=== PATIENT | female | born 1990 | race American Indian/Alaskan Native ===

== ENCOUNTER 2021-03-08 00:14 | Emergency (ER) | payer SELFPAY ==
[2021-03-08] MEDS ORDERED: MORPHINE 4 MG/1 ML INJ IV ONE (00:33)
[2021-03-08] MEDS ORDERED: ONDANSETRON 4 MG/2 ML INJ IV ONE ×2 (00:33→01:58)
[2021-03-08 00:46] LABS: Basophils # (Auto) 0.1 K/mm3 (0.0-0.1); Basophils % (Auto) 1.5 % (0.0-1.8); Eosinophils % (Auto) 0.2 % (0.0-4.3); Hematocrit 43.1 % (30.3-42.9); Hemoglobin 14.7 gm/dl (10.1-14.3); Lymphocytes # (Auto) 2.1 K/mm3 (1.2-5.4); Lymphocytes % (Auto) 35.5 % (13.4-35.0); Mean Corpuscular HGB Conc 34 % (30-34); Mean Corpuscular Volume 86 fl (79-97); Monocytes # (Auto) 0.5 K/mm3 (0.0-0.8); Monocytes % (Auto) 7.4 % (0.0-7.3); Platelet Count 332 K/mm3 (140-440); Red Blood Count 4.98 M/mm3 (3.65-5.03); Red Cell Distribution Width 12.7 % (13.2-15.2)
[2021-03-08 01:03] LABS: Alanine Aminotransferase 19 units/L (7-56); Albumin 4.8 g/dL (3.9-5); BUN/Creatinine Ratio 13; Blood Urea Nitrogen 10 mg/dL (7-17); Calcium 9.6 mg/dL (8.4-10.2); Hemolysis Index 4
[2021-03-08] MEDS ORDERED: SODIUM CHLORIDE 0.9% 1000 ML 1,000 ML IV ONE (01:58)
[2021-03-08] MEDS ORDERED: HYDROmorphone 2 MG/1 ML INJ IV ONE (01:58)
--- NOTE | 2021-03-08 02:01 | Emergency Department Report ---
ED Abdominal Pain HPI - General Chief Complaint: Abdominal Pain Stated Complaint: SEVERE ABD PAIN Time Seen by Provider: 03/08/21 01:55 Source: EMS Mode of arrival: Stretcher Limitations: Physical Limitation - History of Present Illness Initial Comments: Patient is a 30-year-old female that presents emergency room with complaints of abdominal pain. Patient dates abdominal pain is her bilateral lower quadrants radiating to her bilateral flanks. Patient states the pain started 4 days ago. Patient dates the pain is worsening. Patient dates the pain is a 10 out of 10. Patient denies fever and chills. Patient denies blood in her vomitus. Patient also complains of nausea and vomiting. Patient denies diarrhea. Patient denies recent travel. Patient denies recent international travel. Patient denies exposure to the novel coronavirus. Patient denies sick contacts. Patient denies fever and chills. Patient denies cough. Patient denies diarrhea. Patient denies coming in contact with anybody with symptoms of the novel coronavirus. MD Complaint: abdominal pain, flank pain -: Sudden Location: LLQ, RLQ Radiation: L flank, R flank Migration to: no migration Severity: severe Severity scale (0 -10): 10 Quality: stabbing Consistency: constant Improves With: rest Worsens With: vomiting, movement Associated Symptoms: nausea, vomiting. denies: diarrhea, fever, dysuria, hematemesis, hematochezia, melena, hematuria, syncope - Related Data LMP (females 10-50): last week Previous Rx's Medication Instructions Recorded Last Taken Type HYDROcodone/APAP 5-325 [[place] 1 - 2 each PO Q6HR PRN #14 tablet 06/01/16 Unknown Rx 5/325] Promethazine [Phenergan TAB] 25 mg PO Q6HR PRN #20 tab 06/01/16 Unknown Rx Promethazine [Phenergan] 25 mg HI Q6HR PRN #10 supp.rect 06/01/16 Unknown Rx Acetaminophen/Codeine [Tylenol 1 tab PO Q6H PRN #12 tab 03/08/21 Unknown Rx /Codeine # 3 tab] Ondansetron [Zofran Odt] 4 mg PO Q6HR PRN #15 tab.rapdis 03/08/21 Unknown Rx Pantoprazole [Protonix] 40 mg PO QDAY 20 Days #20 tablet 03/08/21 Unknown Rx Allergies Allergy/AdvReac Type Severity Reaction Status Date / Time Fish Containing Products Allergy Unknown Verified 05/28/16 09:13 ketorolac tromethamine Allergy Hives Verified 05/28/16 09:13 [From Toradol] seafood Allergy Unknown Uncoded 05/28/16 09:12 ED Review of Systems ROS: Stated complaint: SEVERE ABD PAIN Other details as noted in HPI Constitutional: denies: chills, fever Eyes: denies: eye pain, eye discharge, vision change ENT: denies: ear pain, throat pain Respiratory: denies: cough, shortness of breath, wheezing Cardiovascular: denies: chest pain, palpitations Endocrine: no symptoms reported Gastrointestinal: as per HPI, abdominal pain, nausea, vomiting. denies: diarrhea, constipation, hematemesis, melena, hematochezia Genitourinary: denies: urgency, dysuria, discharge Musculoskeletal: denies: back pain, joint swelling, arthralgia Skin: denies: rash, lesions Neurological: denies: headache, weakness, paresthesias Psychiatric: denies: anxiety, depression Hematological/Lymphatic: denies: easy bleeding, easy bruising ED Past Medical Hx - Past Medical History Previous Medical History?: Yes Hx Kidney Stones: Yes Additional medical history: Ovarian cyst, UTI - Surgical History Past Surgical History?: Yes Hx Cholecystectomy: Yes - Family History Family history: no significant - Social History Smoking Status: Never Smoker Substance Use Type: None - Medications Home Medications: Home Medications Medication Instructions Recorded Confirmed Last Taken Type HYDROcodone/APAP 5-325 [[place] 1 - 2 each PO Q6HR PRN #14 tablet 06/01/16 Unknown Rx 5/325] Promethazine [Phenergan TAB] 25 mg PO Q6HR PRN #20 tab 06/01/16 Unknown Rx Promethazine [Phenergan] 25 mg HI Q6HR PRN #10 supp.rect 06/01/16 Unknown Rx Acetaminophen/Codeine [Tylenol 1 tab PO Q6H PRN #12 tab 03/08/21 Unknown Rx /Codeine # 3 tab] Ondansetron [Zofran Odt] 4 mg PO Q6HR PRN #15 tab.rapdis 03/08/21 Unknown Rx Pantoprazole [Protonix] 40 mg PO QDAY 20 Days #20 tablet 03/08/21 Unknown Rx ED Physical Exam - General Limitations: Physical Limitation General appearance: alert, in no apparent distress - Head Head exam: Present: atraumatic, normocephalic - Eye Eye exam: Present: normal appearance - ENT ENT exam: Present: mucous membranes moist - Neck Neck exam: Present: normal inspection - Respiratory Respiratory exam: Present: normal lung sounds bilaterally. Absent: respiratory distress - Cardiovascular Cardiovascular Exam: Present: regular rate, normal rhythm. Absent: systolic murmur, diastolic murmur, rubs, gallop - GI/Abdominal GI/Abdominal exam: Present: soft, tenderness, normal bowel sounds. Absent: distended, guarding - Extremities Exam Extremities exam: Present: normal inspection - Back Exam Back exam: Present: normal inspection - Neurological Exam Neurological exam: Present: alert, oriented X3 - Psychiatric Psychiatric exam: Present: normal affect, normal mood - Skin Skin exam: Present: warm, dry, intact, normal color. Absent: rash ED Course Vital Signs 03/08/21 03/08/21 03/08/21 00:19 00:37 02:11 Temperature 97.8 F Pulse Rate 99 H Respiratory 16 19 20 Rate Blood Pressure 152/94 Blood Pressure [Left] O2 Sat by Pulse 100 Oximetry 03/08/21 06:07 Temperature Pulse Rate 87 Respiratory 18 Rate Blood Pressure Blood Pressure 128/84 [Left] O2 Sat by Pulse 100 Oximetry - Reevaluation(s) Reevaluation #1: Initial evaluation done. Patient already had 4 of morphine and 4 of Zofran and the patient is still vomiting and having severe pain. Patient will be given Dilaudid and Zofran. Patient also have IV fluids started. Patient will have a CAT scan done. Patient agrees with plan of care. 03/08/21 02:02 Reevaluation #2: Patient states her pain is better. Patient states her nausea is resolved. 03/08/21 03:28 Reevaluation #3: Patient states she is feeling much better. Patient states he is ready to go. I discussed all results and clinical findings with patient. I discussed plan of care with patient. Patient agrees with plan of care. Patient is stable for discharge. Patient will be discharged home. Patient given discharge instructions. Patient voiced understanding of discharge instructions. 03/08/21 05:28 ED Medical Decision Making - Lab Data Result diagrams: 03/08/21 00:24 03/08/21 00:24 - Radiology Data Radiology results: report reviewed CT abdomen pelvis w con INDICATION: Bi-Lateral lower abd pain, Bi-Lateral flank pain. COMPARISON: None TECHNIQUE: Abdominal and pelvic CT exam performed. All CT scans at this location are performed using CT dose reduction for ALARA by means of automated exposure control. FINDINGS: CT ABDOMEN and PELVIS: Lung Bases: No significant abnormality. Liver: No significant abnormality. Biliary: Gallbladder is surgically absent. Spleen: No significant abnormality. Pancreas: No significant abnormality. Adrenals: No significant abnormality. Kidneys: Left 4 mm interpolar nonobstructing stone. No right renal stones. No hydronephrosis. No suspicious lesion. No suspicious filling defects in the opacified portions of the collecting system or ureters on delayed imaging. Lymphatics: No lymphadenopathy. Vasculature: No significant abnormality. Bowel: Mild gastric antral submucosal edema as well as mild thickening of the large bowel. Normal appendix. Pelvis: No significant abnormality. Osseous Structures: No aggressive osseous lesion. Additional Findings: None IMPRESSION: 1. Findings suggest gastritis in the gastric antrum as well as colitis. - Medical Decision Making Patient is a 30-year-old female who presents emergency room with complaints of severe abdominal pain. Patient's abdominal pain is generalized and radiating to her flanks. Patient had labs done which were essentially unremarkable. P atient's abdominal pain is severe and was given 4 mg of morphine or Dilaudid patient states abdominal pain. Patient was then given 2 mg Dilaudid and Zofran the patient responded well. Patient had a CT scan acute intra-abdominal process and the CAT scan showed gastritis and colitis. Patient notified consistent with gastritis gastroenteritis. Patient stable for discharge. Patient does not require further emergency medical services or inpatient services. Patient discharged home. Patient given a prescription for pain meds and Protonix. - Differential Diagnosis GERD, gastritis, gastroenteritis, abdominal pain, nausea, vomiting Critical care attestation.: If time is entered above; I have spent that time in minutes in the direct care of this critically ill patient, excluding procedure time. ED Disposition Clinical Impression: Gastroenteritis, Colitis Abdominal pain Qualifiers: Abdominal location: generalized Qualified Code(s): R10.84 - Generalized abdominal pain Nausea & vomiting Qualifiers: Vomiting type: unspecified Vomiting Intractability: non-intractable Qualified Code(s): R11.2 - Nausea with vomiting, unspecified Gastritis Qualifiers: Gastritis type: unspecified gastritis Chronicity: acute Gastritis bleeding: without bleeding Qualified Code(s): K29.00 - Acute gastritis without bleeding Disposition: TO HOME OR SELFCARE Is pt being admited?: No Does the pt Need Aspirin: No Condition: Stable Instructions: Viral Gastroenteritis, Adult, Food Choices to Help Relieve Diarrhea, Adult, Nausea and Vomiting, Adult, Colitis, Abdominal Pain (ED) Additional Instructions: Patient to follow-up with primary care in 2 to 3 days. Patient to follow-up with gastroenterology in 2 to 3 days. Patient to rest. Patient to increase water. Patient to eat a brat diet. Patient to eat a reflux diet. Patient to avoid fried foods, alcohol and NSAIDs.. Patient to take Tylenol as needed for pain. Patient to take meds as directed. Patient to return to the ER if condition worsens, changes or new symptoms arise. Prescriptions: Pantoprazole [Protonix] 40 mg PO QDAY 20 Days #20 tablet Acetaminophen/Codeine [Tylenol /Codeine # 3 tab] 1 tab PO Q6H PRN #12 tab PRN Reason: Pain , Severe (7-10) Ondansetron [Zofran Odt] 4 mg PO Q6HR PRN #15 tab.rapdis PRN Reason: Nausea And Vomiting Referrals: RUTH SR MD [Staff Physician] - 2-3 Days RAISSA ALBARADO MD [Staff Physician] - 2-3 Days Time of Disposition: 05:33
--- NOTE | 2021-03-08 04:32 | Cat Scan Report ---
CT abdomen pelvis w con INDICATION: Bi-Lateral lower abd pain, Bi-Lateral flank pain. COMPARISON: None TECHNIQUE: Abdominal and pelvic CT exam performed. All CT scans at this location are performed using CT dose reduction for ALARA by means of automated exposure control. FINDINGS: CT ABDOMEN and PELVIS: Lung Bases: No significant abnormality. Liver: No significant abnormality. Biliary: Gallbladder is surgically absent. Spleen: No significant abnormality. Pancreas: No significant abnormality. Adrenals: No significant abnormality. Kidneys: Left 4 mm interpolar nonobstructing stone. No right renal stones. No hydronephrosis. No susp icious lesion. No suspicious filling defects in the opacified portions of the collecting system or ur eters on delayed imaging. Lymphatics: No lymphadenopathy. Vasculature: No significant abnormality. Bowel: Mild gastric antral submucosal edema as well as mild thickening of the large bowel. Normal dustin endix. Pelvis: No significant abnormality. Osseous Structures: No aggressive osseous lesion. Additional Findings: None IMPRESSION: 1. Findings suggest gastritis in the gastric antrum as well as colitis. Signer Name: Saul Gustafson MD Signed: 03/08/2021 4:27 AM Workstation Name: [id number]
[2021-03-08 06:08] VITALS: BP 128/84
== END 2021-03-08 06:06 | disposition home or self-care (01) ==
LOC: ED 00:14
DX: K52.9 Noninfective gastroenteritis and colitis, unspecified (principal); R10.84 Generalized abdominal pain; Z91.013 Allergy to seafood; Z88.6 Allergy status to analgesic agent
CPT/HCPCS: 36415; 74177; 80053; 84703; 85025; 96361; 96374; 96375; 96376; 99284; J1170; J2270; J2405; J7030; Q9967

== ENCOUNTER 2021-11-20 11:30 | Emergency (ER) | payer SELFPAY ==
[2021-11-20 11:44] VITALS: BP 120/72
== END 2021-11-20 18:19 | disposition left against medical advice (07) ==
LOC: ED 11:30
DX: H66.90 Otitis media, unspecified, unspecified ear (principal); L98.8 Other specified disorders of the skin and subcutaneous tissue; Z53.21 Procedure and treatment not carried out due to patient leaving prior to being seen by health care provider